=== PATIENT | female | born 1970 | race Caucasian/White ===

== ENCOUNTER → 2018-11-03 | Day surgery (SDC) | payer BC, OTHER ==
--- NOTE | 2018-11-03 09:40 | OP ---
DATE OF OPERATION: 11/03/2018 PREOPERATIVE DIAGNOSIS: High right axillary subcutaneous nodule. POSTOPERATIVE DIAGNOSIS: High right axillary subcutaneous nodule. PROCEDURE: Right axillary needle ultrasound-guided core biopsy. ANESTHESIA: Local. ATTENDING SURGEON: Aaron Hess MD ESTIMATED BLOOD LOSS: Minimal. COMPLICATIONS: None. DESCRIPTION OF PROCEDURE: Patient was made aware of the risks and benefits of the procedure and consented. She was placed in the supine position. Under sterile conditions with 1% lidocaine for local anesthesia, small emilio was made in the skin. Using a 13-gauge suction biopsy device via lateral approach under ultrasound guidance, 6 cores were obtained and submitted to Pathology. Well tolerated by patient. Steri-Strip and sterile bandage was applied. Will contact her with the results. AARON HESS M.D. [id number]
--- NOTE | 2018-11-06 14:02 | PATH ---
Surgical Pathology Report Patient Name: MARION SEE [facility]. Rec. #: [id number] /Age/Gender: 1970 (Age: 48) / F Account: [id number] Location: [facility] AM[facility]UL[facility] Taken: 11/03/2018 Received: 11/03/2018 Reported: 11/06/2018 Physicians: Oswaldo Bishop M.D. Specimen(s) Received RIGHT AXILLARY SUBQ NODULE CORE BIOPSY Clinical History Palpable mass Ultrasound findings: Probably benign Final Diagnosis RIGHT AXILLARY SUBCUTANEOUS NODULE, CORE BIOPSY: BREAST TISSUE WITH FIBROADENOMA. Electronically Signed Donato Roberts M.D. Gross Description Received in formalin labeled "right axilla," is a 1.5 x 1.5 x 0.3 cm aggregate of multiple hedrick yellow, irregular to cylindrical portions of fibroadipose tissue. The formalin is filtered and the specimen is entirely submitted in one cassette. Time to formalin fixation: Less than one minute Total formalin fixation time: Approximately 9 hours. /11/03/2018 saudi11/03/2018
== END | disposition home or self-care (01) ==
LOC: FRADUS-SUR 08:13
PROVIDERS: ATTEND Surgery Surgical Oncology
PROC: 0HBT3ZX Excision of Right Breast, Percutaneous Approach, Diagnostic (ICD-10-PCS; principal; 2018-11-03)
DX: D24.1 Benign neoplasm of right breast (principal); N63.31 Unspecified lump in axillary tail of the right breast
CPT/HCPCS: 19083; 87899; 88305-TC